=== PATIENT | female | born 1980 | race Caucasian/White ===

== ENCOUNTER 2016-12-03 09:17 | Emergency (ER) | payer OTHER ==
[~2016-12-03] VITALS: Ht 157.5 cm; Wt 63.0 kg
[~2016-12-03 09:17] MED LIST: KEFLEX500 M1 PO
[2016-12-03] MEDS ORDERED: LISINOPRIL10 MG PO (09:27)
[2016-12-03] MEDS ORDERED: CYCLOBENZAPR5 MG PO (10:13)
[2016-12-03] MEDS ORDERED: MOTRIN400 MG PO (10:13)
[2016-12-03 10:26] VITALS: BP 143/98
== END 2016-12-03 10:27 | disposition home or self-care (01) | DRG 556 ==
LOC: ED 09:17
DX: M79.662 Pain in left lower leg (principal)

== ENCOUNTER 2021-09-18 19:55 | Emergency (ER) | payer OTHER ==
[~2021-09-18] VITALS: Ht 157.5 cm; Wt 68.0 kg
[~2021-09-18 19:55] MED LIST changes: +ATORVASTATIN CA10 MG PO; +CYCLOBENZAPR5 MG PO; +FIORICET PO; +LISINOPRIL10 MG PO; +MOTRIN400 MG PO; +NORVASC5 M1 PO
[2021-09-18 20:04] VITALS: BP 148/95
[2021-09-18 20:15] VITALS: BP 131/79
[2021-09-18 20:30] VITALS: BP 131/83
[2021-09-18] MEDS ORDERED: HYDROXYZINE HYD25 MG PO (20:30)
[2021-09-18] MEDS ORDERED: DOXYCYCLINE100 MG PO (20:30)
[2021-09-18 20:45] VITALS: BP 129/89
== END 2021-09-18 21:01 | disposition home or self-care (01) | DRG 607 ==
LOC: ED 19:55
DX: L73.9 Follicular disorder, unspecified (principal); I10 Essential (primary) hypertension; F17.210 Nicotine dependence, cigarettes, uncomplicated